=== PATIENT | female | born 1975 | race Caucasian/White ===

== ENCOUNTER 2021-04-26 10:43 | Emergency (ER) | payer OTHER, SELFPAY ==
[2021-04-26 10:59] VITALS: BP 110/71; PULSE 84; RESP 18; TEMP 36.4; O2SAT 99
[2021-04-26 11:03] VITALS: BP 110/71; PULSE 84; RESP 18; TEMP 36.4; O2SAT 99
--- NOTE | 2021-04-26 11:27 | ED.FEMALEGU ---
HPI - Female Genitourinary General Chief complaint: Urogenital-Female Stated complaint: UTI Time Seen by Provider: 04/26/21 11:15 Source: patient Mode of arrival: ambulatory Limitations: no limitations History of Present Illness HPI Narrative: 45-year-old female who presents to [facility] with complaints of urinary urgency and burning since last p.m. Patient has long standing history of urinary tract infections and symptoms similar to start of previous episodes of UTI. Patient denies any lower suprapubic pain or any flank pain. Patient reports that she dis take dose of Azo last night but none this morning. Patient denies any vaginal discharge or any concern for STD exposure. MD elicited complaint: dysuria Pertinent past history: recurrent UTIs Related Data Home Medications Medication Instructions Recorded Confirmed No Home Medications 04/26/21 04/26/21 Allergies Allergy/AdvReac Type Severity Reaction Status Date / Time clarithromycin [From Biaxin] Allergy Rash Verified 04/26/21 11:07 clindamycin Allergy Rash Verified 04/26/21 11:07 Review of Systems Review of Systems: CONSTITUTIONAL: Denies fever, chills, or sweats. EYES: Denies visual changes, redness, or discharge. ENT: Denies rhinorrhea, congestion, sore throat, or otalgia. CARDIOVASCULAR: Denies chest pain, palpitations, or edema. RESPIRATORY: Denies cough or dyspnea. GASTROINTESTINAL: Denies abdominal pain, nausea, vomiting, or diarrhea. GENITOURINARY: Positive for dysuria, urinary urgency,or hematuria. SKIN: Denies rash or itching. MUSCULOSKELETAL: Denies back pain, joint pain, or myalgia. NEUROLOGIC: Denies headache, numbness, or weakness. PSYCHIATRIC: Denies anxiety or depression. All systems reviewed & are unremarkable except as noted in HPI and below [facility] Past Medical History Medical History (Updated 04/28/21 @ 16:41 by Kyra Ellington NP) UTI (urinary tract infection) Surgical History Surgical History (Updated 04/28/21 @ 16:41 by Kyra Ellington NP) History of breast augmentation History of endometrial ablation Family History Family History (Updated 04/28/21 @ 16:41 by Kyra Ellington NP) Grandparent Cancer Social History Social History (Updated 04/28/21 @ 16:42 by Kyra Ellington NP) Smoking status: Never smoker Alcohol intake: current Alcohol use details: social Substance use: never Living arrangements: with family Gender identity (if verbalized by the patient): Female Comments At time of signature, agree with nursing past medical, surgical, social and family history. There is no relevant family history pertinent to the presenting complaint Exam Narrative: GENERAL: Well-appearing, well-nourished, and in no acute distress. HEAD: Normocephalic, atraumatic. EYES: PERRLA and EOMI. ENT: Nares clear, no rhinorrhea or epistaxis. Mucous membranes moist.TM's normal with good light reflex, throat pink with no lesions exudates, tonsils not enlargeed NECK: Supple.no lymphadenopathy CHEST: Clear to auscultation. No respiratory distress.SAO2 99% on room air HEART: Regular rate and rhythm. No murmur heard. Normal peripheral pulses. ABDOMEN: Soft, nontender, nondistended, normal active bowel sounds.no flank pain, urinary frequency and burning reported with no fevers chills or sweats or any nausea or vmoiting. EXTREMITIES: Normal range of motion. No edema. SKIN: Warm, dry, no rash. NEURO: No focal deficits. Alert and oriented x3. Course Vital Signs Vital signs: Vital Signs Temperature 36.4 C 04/26/21 10:59 Pulse Rate 84 04/26/21 10:59 Respiratory Rate 18 04/26/21 10:59 Blood Pressure 110/71 04/26/21 10:59 Pulse Oximetry 99 04/26/21 10:59 Temperature 36.4 C 04/26/21 11:03 Pulse Rate 84 04/26/21 11:03 Respiratory Rate 18 04/26/21 11:03 Blood Pressure 110/71 04/26/21 11:03 Pulse Oximetry 99 04/26/21 11:03 MDM - Female Genitourinary Differential Diagnosis Differential di
== END 2021-04-26 11:40 | disposition home or self-care (01) ==
PROVIDERS: Emergency Provider Registered Nurse
DX: N39.0 Urinary tract infection, site not specified (principal)
CPT/HCPCS: 81003; 87077; 87086; 87088; 87186; 99203; G0463